=== PATIENT | female | born 1965 | race Caucasian/White ===

== ENCOUNTER 2017-11-04 19:30 | Emergency (ER) | payer BC ==
[2017-11-04] MEDS ORDERED: Diph,Pert(Acell),Tet Vac 0.5 ML SYR IM ONE (20:11)
--- NOTE | 2017-11-04 20:14 | Emergency Department Record ---
History of Present Illness - General Stated Complaint: LAC LOWER BACK Time Seen by Provider: 11/04/17 19:34 Source: Patient, Family Mode of Arrival: Ambulatory Limitations: No limitations - History of Present Illness Initial Comments: 52 yo female presents after a fall at home. She mis-stepped and landed on a glass coffee table. She has a laceration across the upper glutteal area. She is unsure of her last tetanus shot. No other injuries. The bleeding is controlled. MD Complaint: Fall -: Minutes(s) Fall From: Standing When Fall Occurred: Just prior to arrival Fall Witnessed: Yes, by family Place Fall Occurred: Home Loss of Consciousness: None Prolonged Down Time?: No Symptoms Prior to Fall: None Location: Other (back) Severity: Moderate Quality: Aching - [place] Coma Scale Eye Response: (4) Open spontaneously Motor Response: (6) Obeys commands Verbal Response: (5) Oriented Deepika Total: 15 - Related Data Home Medications Medication Instructions Recorded Confirmed Last Taken No Home Med [NO HOME MEDS] 11/04/17 11/04/17 Unknown Allergies Allergy/AdvReac Type Severity Reaction Status Date / Time No Known Drug Allergies Allergy Verified 11/04/17 19:36 Review of Systems Constitutional: Denies: Chills, Fever, Malaise, Weakness Eyes: Denies: Eye discharge ENT: Denies: Congestion, Throat pain Cardiovascular: Denies: Chest pain, Palpitations, Syncope Endocrine: Denies: Fatigue Gastrointestinal: Denies: Abdominal pain, Diarrhea, Nausea, Vomiting Genitourinary: Denies: Dysuria, Hematuria, Urgency Musculoskeletal: Reports: As per HPI, Back pain Skin: Reports: As per HPI, Other Neurological: Denies: Confusion, Headache, Numbness, Weakness Psychiatric: Denies: Anxiety Hematological/Lymphatic: Denies: Blood Clots, Easy bleeding, Easy bruising, Swollen glands Past Medical History - SOCIAL HISTORY Smoking Status: Never smoker - RESPIRATORY Hx Respiratory Disorders: No - CARDIOVASCULAR Hx Cardio Disorders: No - NEURO Hx Neuro Disorders: No - GI Hx GI Disorders: No - Hx Genitourinary Disorders: Yes Hx UTI: Yes - ENDOCRINE Hx Endocrine Disorders: No - MUSCULOSKELETAL Hx Musculoskeletal Disorders: No - PSYCH Hx Psych Problems: No - HEMATOLOGY/ONCOLOGY Hx Hematology/Oncology Disorders: Yes Hx Cancer: Yes (cervical-2012) Hx Chemotherapy: Yes Hx Radiation Therapy: Yes Physical Exam - General General Appearance: Alert, Oriented x3, Cooperative, No acute distress Limitations: No limitations - Head Head exam: Atraumatic, Normal inspection - Eye Eye exam: Normal appearance. negative: Conjunctival injection, Scleral icterus - ENT ENT exam: Normal exam Ear exam: Normal external inspection Nasal Exam: Normal inspection Mouth exam: Normal external inspection - Neck Neck exam: Normal inspection - Respiratory Respiratory exam: Normal lung sounds bilaterally. negative: Respiratory distress - Cardiovascular Cardiovascular Exam: Regular rate, Normal rhythm, Normal heart sounds - GI/Abdominal GI/Abdominal exam: Soft - Rectal Rectal exam: Deferred - exam: Deferred - Extremities Extremities exam: Normal inspection Image of Full Body: 1 - laceration, linear, clean, no FB visible 2 - 11cm clean, linear laceration, no FB superficial. - Back Back exam: Reports: Other (laceration). Denies: Normal inspection - Neurological Neurological exam: Alert, Oriented X3 - Psychiatric Psychiatric exam: Normal affect, Normal mood - Skin Skin exam: Dry, Normal color, Warm. negative: Intact (laceration) Course - Reevaluation(s) Reevaluation #1: Procedure 11cm Laceration repair Betadine prep Lidocaine with Epi 5ml local Hibaclens scrub copious NS irrigation No FB visible. Superficial laceration examined to the base in a bloodless field. No glass. No glass on the skin. No signs of FB. Repeat Betadine prep Prolene 3-0 suture #11 sutures placed with good alignment We discussed wound care, reasons to return and follow up in the ED in 12 days for suture removal. 11/04/17 20:25 Disposition Disposition: Discharge Clinical Impression: Laceration Disposition: Home, Self-Care Condition: (1) Good Instructions: Laceration (ED) Additional Instructions: Keep the area dry and clean You may shower then gently dry and replace the dressing Return in 12 days for suture removal Return immediately if you have fever, pus, red, warm or any concerns about infection Forms: Patient Portal Access Time of Disposition: 20:29 Quality - Quality Measures Quality Measures: N/A - Blood Pressure Screening Does Patient Have Any of the Following: No Blood Pressure Classification: Pre-Hypertensive BP Reading Systolic Measurement: 136 Diastolic Measurement: 71 Screening for High Blood Pressure: < Pre-Hypertensive BP, F/U Documented > [ [id number]] Pre-Hypertensive Follow-up Interventions: Referral to alternative/primary care provider.
== END 2017-11-04 20:39 | disposition home or self-care (01) ==
LOC: ER 19:30
DX: S31.821A Laceration without foreign body of left buttock, initial encounter (principal); S31.811A Laceration without foreign body of right buttock, initial encounter; W01.110A Fall on same level from slipping, tripping and stumbling with subsequent striking against sharp glass, initial encounter; Y92.008 Other place in unspecified non-institutional (private) residence as the place of occurrence of the external cause; Y92.009 Unspecified place in unspecified non-institutional (private) residence as the place of occurrence of the external cause
CPT/HCPCS: 12004; 90715; 96372; 99283; 99284